=== PATIENT | male | born 1995 | race African-American/Black ===

== ENCOUNTER 2016-07-11 06:33 | Day surgery (SDC) | payer OTHER ==
[2016-07-11] VITALS (8 sets, daily range): BP systolic 125–164; BP diastolic 63–91
[~2016-07-11] VITALS: Ht 172.7 cm; Wt 86.2 kg
[~2016-07-11 06:33] MED LIST: no medications
[2016-07-11] MEDS ORDERED: dexameTHASONE 4 MG/ML 1ML VIAL (J1100) IV ONE (06:45)
[2016-07-11] MEDS ORDERED: PROPOFOL 200 MG/20 ML VIAL As Ordered ONE (07:13)
[2016-07-11] MEDS ORDERED: dexameTHASONE 4 MG/ML 1ML VIAL (J1100) As Ordered ONE (07:13)
[2016-07-11] MEDS ORDERED: ROCURONIUM BROMIDE 50 MG/5 ML VIAL As Ordered ONE (07:13)
[2016-07-11] MEDS ORDERED: ONDANSETRON 4MG/2ML VIAL (J2405) As Ordered ONE (07:13)
[2016-07-11 07:14] LABS: MEAN CORPUSCULAR HEMOGLOBIN 30.4 pg (27.0-33.0); MEAN CORPUSCULAR HGB CONC 32.2 g/dl (32.0-36.5); MEAN CORPUSCULAR VOLUME 94.3 fl (80.0-96.0); RED CELL DISTRIBUTION WIDTH 11.9 % (11.5-14.5); WHITE BLOOD COUNT 5.7 K/mm3 (4.0-10.0)
[2016-07-11] MEDS ORDERED: LIDOCAINE 2% INJ 100 MG/5 ML SDV (FOR ANES.) As Ordered ONE (07:17)
[2016-07-11] MEDS ORDERED: fentaNYL 250 MCG/5 ML INJECTION (J3010) As Ordered ONE (07:18)
[2016-07-11] MEDS ORDERED: MIDAZOLAM INJ 2 MG/2 ML VIAL (J2250) As Ordered ONE (07:19)
[2016-07-11] MEDS ORDERED: OXYMETAZOLINE NASAL SPRAY (AFRIN) As Ordered ONE ×2 (07:41→07:42)
[2016-07-11] MEDS ORDERED: LIDOCAINE 2% W/ EPINEPHRINE 1.7 ML DENTAL INJ As Ordered ONE (07:45)
[2016-07-11] MEDS ORDERED: HYDROmorphone HCL 2 MG/ML 1ML VIAL (J1170) As Ordered ONE (08:18)
[2016-07-11] MEDS ORDERED: NEOSTIGMINE 1MG/ML 5 ML SYRINGE (J2710) As Ordered ONE (11:03)
[2016-07-11] MEDS ORDERED: fentaNYL 100 MCG/2 ML INJECTION (J3010) As Ordered ONE (12:11)
[2016-07-11] MEDS: fentaNYL 100 MCG/2 ML INJECTION (J3010) IV PRN ×4 (12:13→12:28)
[2016-07-11] MEDS ORDERED: METOCLOPRAMIDE INJ 10MG/2ML VIAL (J2765) IV PRN (12:30)
[2016-07-11] MEDS ORDERED: ONDANSETRON 4MG/2ML VIAL (J2405) IV PRN (12:30)
[2016-07-11] MEDS ORDERED: PERCOCET 5MG/325MG TAB PO PRN (12:30)
[2016-07-11] MEDS ORDERED: LR 1,000 ML IV SCH ×2 (12:30→16:30)
[2016-07-11] MEDS ORDERED: HYDROmorphone HCL 1 MG/ML SYRINGE (J1170) IV PRN (12:30)
[2016-07-11] MEDS: PSEUDOEPHEDRINE 30 MG TAB PO SCH ×3 (13:00→23:41)
[2016-07-11] MEDS ORDERED: AMPICILLIN SOD/SULBACTAM SOD 3 GM in D5W MINI-BAG PLUS 100 ML IV SCH (13:00)
[2016-07-11] MEDS: PERCOCET 5MG/325MG TAB PO SCH ×2 (14:35→20:41)
[2016-07-11] MEDS: IBUPROFEN 800 MG TAB PO SCH ×2 (14:36→21:59)
[2016-07-11] MEDS: AMPICILLIN SOD/SULBACTAM SOD 3 GM in D5W MINI-BAG PLUS 100 ML IV SCH ×2 (16:04→23:42)
[2016-07-11] MEDS: ONDANSETRON 4MG/2ML VIAL (J2405) IV SCH ×2 (16:05→23:43)
[2016-07-11] MEDS: dexameTHASONE 4 MG/ML 1ML VIAL (J1100) IV SCH ×2 (16:05→23:42)
[2016-07-11] MEDS ORDERED: MORPHINE 2 MG/ML 1ML SYRINGE IV PRN (16:45)
[2016-07-11] MEDS ORDERED: PERCOCET 5MG/325MG TAB PO SCH (18:00)
[2016-07-11] MEDS ORDERED: ONDANSETRON 4MG/2ML VIAL (J2405) IV SCH (20:00)
[2016-07-12] VITALS: BP 159/74
--- NOTE | 2016-07-12 00:04 | RO ---
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 POSTOPERATIVE DIAGNOSIS: Left maxillary keratocystic odontogenic tumor. PROCEDURE: LeFort level 1 osteotomy downfracture with excisional biopsy of the left maxillary sinus, removal of tooth #16 under general anesthesia. SURGEONS: Stephon Santoro DDS, and Steven Harper DDS, MD [employer]AT[employer] TECHNICIAN: ANESTHESIA: Anesthesia for the case was provided by NAHOMY Perdomo. The patient received approximately 800 mL of lactated Ringer's during the procedure. Blood loss was approximately 200 mL. There were no complications during the procedure. He was taken to the postoperative recovery area in excellent condition where he was admitted to the hospital for overnight observation and pain control. INDICATIONS FOR THE PROCEDURE: Anton is a 20-year-old male who had been seen on post by Dr. Stephon Santoro on several occasions. A biopsy had been performed of a large lesion in his left maxillary sinus, which was demonstrated to be keratocystic odontogenic tumor. At that point, decompression of the cyst was performed under sedation with placement of a narrow pharyngeal airway to continue to irrigate, marsupialize the cyst and decrease the size of the tumor, which was successful. We continued that course for approximately 6 months at which time the tumor had shrunk to the point where we felt we could operate. Due to the size of the tumor, which was very large and filling the entire left maxillary sinus, we decided to approach the tumor with a LeFort osteotomy to allow us better access to perform a peripheral ostectomy and to remove all of the tumor elements. All the risks, complications and alternatives of the LeFort approach, as well as the general anesthesia for the procedure were discussed with the patient. All his questions were answered. He elected to undergo the procedure in the main operating room. DESCRIPTION OF PROCEDURE: The patient was seen and identified in the preoperative holding area. All necessary paperwork was completed. He was taken to operating room #1 where he was placed under general anesthesia via nasal endotracheal intubation. The tube was then secured in the head wrap by the oral maxillofacial surgery team. The patient was then prepped and draped in a sterile fashion and a time out was conducted. The throat was suctioned clean and dry and a throat pack was placed. Local anesthetic in the form of 2% lidocaine with 1:100,000 epinephrine was injected along the left and right maxillary vestibules along the nasal floor. After allowing sufficient time for vasoconstriction, a full mucoperiosteal incision was created from first molar to first molar through the mucosa, submucosal tissues and to the periosteum at which time subperiosteal dissection was begun along the left and right sides of the maxilla to the nasal floor and posteriorly along the lateral maxillary wall to the level of the maxillary tuberosity. After exposing all of those areas, we then began dissection of the nasal floor using a Lyudmila, followed by a curved Marston to the area of the posterior floor. All the nasal mucosa was lifted and dissected carefully free. At that time, we then packed the area with Afrin-soaked pledgets. We proceeded with placement of our plates. The plan was not to place the patient into maxillary mandibular fixation but rather to place plates, remove the plates and then use those to realign the patient's occlusion after the surgery. The patient had adequate class I occlusion before the surgery with excellent intercuspation. So, we then proceeded with bending and placement of L-plates on the left and right sides of the pyriform aperture on the left and right buttress regions. These were then carefully removed. The screws were removed and they were placed to the side so we could replace the plates after the downfracture was complete. We then proceeded with the lateral osteotomies on either side. Using a reciprocating saw under copious amounts of irrigation, osteotomy was created from the buttress region to the pyriform with a back cut to ensure the plates were free. A single guarded osteotome was then used to re-osteotomize and to check the osteotomies posterior to the level of the plates and along the lateral nasal wall. In this case, the single guarded osteotome was also used to relieve the septum. We then used a 10 mm curved chisel in an inferior, medial and anterior direction to fracture the pterygoid plates. We told anesthesia that downfracture was eminent. The MAPs were reduced to a level of around 60 at which time we performed the downfracture, mobilized all the segments and had excellent visualization. We proceeded with cleaning up some of the elements near the septal attachment, removing some of the bone to ensure that we would be able to replace the maxilla without any difficulty. The DPA on the right was maintained, the DPA on the left was slightly torn; therefore, it was cauterized and removed. We then proceeded with curetting of the entire sinus, removal of all the tissue. This was then placed into 10% formalin for pathology review as well as tooth #16. We cleaned all of the soft tissue visible. The soft tissue was very thick; due to the marsupialization, it was fairly easily removed. After removal of all the soft tissue, we took a reciprocating handpiece and used a file, a bone file, a power rasp to perform a peripheral ostectomy throughout the entire cavity. After this was completed, we irrigated thoroughly and proceeded with replacement of the LeFort plate placed on the left and right using the same screw holes. After the plates were placed, the occlusion was checked and was found to be adequate and stable. We then irrigated thoroughly again. The septum was retied to the anterior nasal spine, an alar cinch was used to reapproximate the nasal base and a V-Y closure was performed using a #3-0 chromic gut in a running fashion on both sides. The patient was then again irrigated, the throat was suctioned clean and dry and the throat pack was removed and orogastric (OG) tube was passed. The patient was allowed to emerge from general anesthesia. He did so without any complications, taken to the post-anesthesia care unit (PACU) in stable condition and later admitted to the hospital for overnight observation and pain control.
[2016-07-12] MEDS: PERCOCET 5MG/325MG TAB PO SCH ×2 (02:33→08:26)
[2016-07-12 04:00] VITALS: BP 139/90
[2016-07-12] MEDS: PSEUDOEPHEDRINE 30 MG TAB PO SCH (05:31)
[2016-07-12] MEDS: IBUPROFEN 800 MG TAB PO SCH (05:31)
[2016-07-12] MEDS: AMPICILLIN SOD/SULBACTAM SOD 3 GM in D5W MINI-BAG PLUS 100 ML IV SCH (06:41)
[2016-07-12] MEDS: ONDANSETRON 4MG/2ML VIAL (J2405) IV SCH (06:42)
[2016-07-12] MEDS: dexameTHASONE 4 MG/ML 1ML VIAL (J1100) IV SCH (06:42)
[2016-07-12 08:00] VITALS: BP 135/77
[2016-07-12] MEDS ORDERED: MOTR200T44 PO (10:26)
[2016-07-12] MEDS ORDERED: ZOFR4TAB3 PO (10:26)
[2016-07-12] MEDS ORDERED: PERC5TAB6 PO (10:26)
[2016-07-12] MEDS ORDERED: PREDPOW10 PO (10:26)
[2016-07-12] MEDS ORDERED: AUGM875T27 PO (10:28)
[2016-07-12] MEDS ORDERED: SUDA30TA PO (10:29)
[2016-07-12] MEDS ORDERED: AFRI0.056 (10:32)
== END 2016-07-12 12:40 | disposition home or self-care (01) ==
LOC: M SDC 06:33 → M PED 12:40 → M SDC 07-12 12:40
PROVIDERS: ATTEND Dentist
DX: D16.4 Benign neoplasm of bones of skull and face (principal)
CPT/HCPCS: 36415; 85027; 88305; 96365; 96375; 96376; C1776; D7946; J0690; J1100; J1170; J2250; J2405; J2710; J3010

== ENCOUNTER 2016-07-20 22:03 | Emergency (ER) | payer OTHER ==
[~2016-07-20] VITALS: Ht 172.7 cm; Wt 79.4 kg
[~2016-07-20 22:03] MED LIST changes: +AFRI0.056; +AUGM875T27 PO; +MOTR200T44 PO; +PERC5TAB6 PO; +PREDPOW10 PO; +SUDA30TA PO; +ZOFR4TAB3 PO
[2016-07-20 22:04] VITALS: BP 140/81
[2016-07-21] MEDS ORDERED: ONDANSETRON 4MG/2ML VIAL (J2405) IV ONE (02:45)
[2016-07-21] MEDS ORDERED: NS 1,000 ML IV ONE (02:45)
[2016-07-21] MEDS ORDERED: PANTOPRAZOLE 40MG TAB (PROTONIX) PO ONE (02:45)
[2016-07-21 03:29] LABS: BASO % 0.3 % (0.0-1.0); EOS # 0.1 K/mm3 (0.0-0.50); EOS % 1.2 % (0.0-3.0); LARGE UNSTAINED CELL # 0.1 K/mm3 (0.0-0.4); LARGE UNSTAINED CELL % 1.1 % (0.0-4.0); LYMPH # 1.4 K/mm3 (1.5-6.5); LYMPH % 21.5 % (24.0-44.0); MEAN CORPUSCULAR HEMOGLOBIN 29.4 pg (27.0-33.0); MEAN CORPUSCULAR HGB CONC 32.5 g/dl (32.0-36.5); MEAN CORPUSCULAR VOLUME 90.2 fl (80.0-96.0); MONO # 0.3 K/mm3 (0.0-0.8); MONO % 5.1 % (0.0-5.0); NEUTROPHILS # 4.8 K/mm3 (1.8-7.7); NEUTROPHILS % 70.9 % (36.0-66.0); PLATELET COUNT, AUTOMATED 356 k/mm3 (150-450); RED CELL DISTRIBUTION WIDTH 11.8 % (11.5-14.5); WHITE BLOOD COUNT 6.7 K/mm3 (4.0-10.0)
[2016-07-21] MEDS ORDERED: MORPHINE 4 MG/ML 1ML SYRINGE IV ONE (03:30)
[2016-07-21 03:54] LABS: ALBUMIN 3.5 GM/DL (3.2-5.2); ALBUMIN/GLOBULIN RATIO 0.85 (1.00-1.93); ALKALINE PHOSPHATASE 80 U/L (45-117); ALT/SGPT 16 U/L (12-78); ANION GAP 8 MEQ/L (8-16); AST/SGOT 12 U/L (15-37); BILIRUBIN,DIRECT < 0.1 MG/DL (0.0-0.2); BILIRUBIN,TOTAL 0.3 MG/DL (0.2-1.0); BLOOD UREA NITROGEN 14 MG/DL (7-18); CALCIUM LEVEL 9.3 MG/DL (8.5-10.1); CARBON DIOXIDE LEVEL 30 MEQ/L (21-32); CHLORIDE LEVEL 102 MEQ/L (98-107); CREATININE FOR GFR 0.95 MG/DL (0.70-1.30); GLUCOSE, FASTING 89 MG/DL (70-105); POTASSIUM SERUM 4.6 MEQ/L (3.5-5.1); SODIUM LEVEL 140 MEQ/L (136-145); TOTAL PROTEIN 7.6 GM/DL (6.4-8.2)
--- NOTE | 2016-07-21 08:22 | REP ---
Clinical: abdominal pain. Technique: Upright view of the chest with supine and upright views of the abdomen and pelvis. Findings: Frontal upright view of the chest demonstrates no acute cardiopulmonary process or free air below the diaphragm to suspect pneumoperitoneum. Supine and upright views of the abdomen and pelvis demonstrate nonspecific bowel gas pattern without obstruction or perforation. No organomegaly. No abnormal calcifications. Skeletal structures normal for age. Impression: Nonspecific bowel gas pattern. Signed by Dexter Rod MD 07/21/2016 08:14 A
== END 2016-07-21 06:52 | disposition home or self-care (01) ==
LOC: M ED 23:38
DX: K91.89 Other postprocedural complications and disorders of digestive system (principal); R11.2 Nausea with vomiting, unspecified
CPT/HCPCS: 74022; 80048; 80076; 83690; 85025; 96374; 96375; 99282; J2405